=== PATIENT | male | born 1985 | race Caucasian/White ===

== ENCOUNTER 2016-10-11 16:18 | Emergency (ER) | payer BC ==
--- NOTE | 2016-10-11 17:04 | EDM.PDOC ---
ED HPI GENERAL MEDICAL PROBLEM - General Chief Complaint: Back Pain or Injury Stated Complaint: PT HAS LOWER BACK PAIN Time Seen by Provider: 10/11/16 16:50 Source of Information: Reports: Patient History Limitations: Reports: No Limitations - History of Present Illness INITIAL COMMENTS - FREE TEXT/NARRATIVE: HISTORY AND PHYSICAL: History of present illness: [Patient comes to the emergency room complaining of low back pain. He moved to [place] from [place] 5 days ago to start a job. he reports a history of chronic low back pain for many years with occasional flareups. If that he feels good 70% of the time, but the other 30% she experiences low back pain, spasms throughout his back, and pain in his hips. He had an MRI one and a half years ago which showed herniation of L3-L4 and spinal stenosis throughout. He has been applying hot and cold compresses, doing stretching exercises, and taking naproxen 225 mg tablets 2-3 tablets daily. He has not been seen by a medical provider within the past one year. Has not yet established care locally. Patient states that he does not want narcotics as they have not been effective in the past, and he doesn't want any trouble with a drug screen at his new employer. Denies numbness tingling and weakness. Pain is only in his low back. No fever or chills. No difficulty urinating. No constipation or diarrhea. No loss of rectal sensation. No other complaints or concerns. Review of systems: As per history of present illness and below otherwise all systems reviewed and negative. Past medical history: As per history of present illness and as reviewed below otherwise noncontributory. Surgical history: As per history of present illness and as reviewed below otherwise noncontributory. Social history: Smokes one pack of cigarettes per day, drinks a couple of beers per week Family history: As per history of present illness and as reviewed below otherwise noncontributory. Physical exam: HEENT: Atraumatic, normocephalic., pupils reactive, negative for conjunctival pallor or scleral icterus, oral mucous membranes are pink and moist. Chest: Clear to auscultation breath sounds equal bilaterally, chest nontender. Heart: S1S2, regular, negative for clicks, rubs, or JVD. Abdomen: Soft, obese. Pelvis: Stable nontender. Genitourinary: Deferred. Rectal: Deferred. Extremities: No spinal abnormalities are appreciated. No areas of tenderness or step-offs. No rashes or suspicious appearing lesions. Complains of discomfort with even gentle range of motion exercises throughout hips and low back. Neurovascular unremarkable. Neuro: Awake, alert, oriented. Patellar reflexes are diminished but equal bilaterally. No weakness to lower legs. Gait in all lower extremity movements are symmetrical. Motor and sensory unremarkable throughout. Exam nonfocal. Therapeutics: [Toradol 60mg IM, Norflex 60mg IM] Impression: [low back pain, chronic] Plan: [Discussed with patient that he needs to establish care with a local PCP for management of his chronic low back pain. Reviewed with him that narcotics are not prescribed in the ER for chronic low back pain. He receives Toradol and Norflex injections. He is instructed to take 2 naproxen twice a day with a PPI and with food. He is given a referral for local primary care. All of his questions are answered and concerns are addressed.] Definitive disposition and diagnosis as appropriate pending reevaluation and review of above. Lower Back Pain Score (Numeric/FACES): 7 - Related Data Allergies Allergy/AdvReac Type Severity Reaction Status Date / Time No Known Allergies Allergy Verified 10/11/16 16:29 Home Meds: Home Meds . [No Known Home Meds] 10/11/16 [History] Past Medical History - Past Health History Medical/Surgical History: Denies Medical/Surgical History Other Musculoskeletal History: herniated disc - Infectious Disease History Infectious Disease History: Reports: Chicken pox, Shingles Social & Family History - Family History Family Medical History: Noncontributory - Tobacco Use Smoking Status *Q: Current Every Day Smoker Years of Tobacco use: 5 Packs/Tins Daily: 1 - Caffeine Use Caffeine Use: Reports: Coffee, Energy drinks, Soda Caffeine Use Comment: 1-2each drinks/day - Recreational Drug Use Recreational Drug Use: No ED ROS GENERAL - Review of Systems Review Of Systems: ROS reveals no pertinent complaints other than HPI. ED EXAM,LOWER BACK PAIN/INJURY - Physical Exam Exam: See Below Course - Vital Signs Last Recorded V/S: Last Vital Signs Temp 97 F 10/11/16 16:26 Pulse 99 10/11/16 16:26 Resp 19 10/11/16 16:26 BP 142/81 H 05/11/17 16:26 Pulse Ox 98 10/11/16 16:26 - Orders/Labs/Meds Orders: Active Orders 24 hr Category Date Time Status Orphenadrine [Norflex] Med 10/11/16 17:30 Active 60 mg IM Q12H Medication Orders Orphenadrine Citrate (Norflex) 60 mg IM Q12H CHRISTO Last Admin: 10/11/16 17:26 Dose: 60 mg Meds: Medications Generic Name Dose Route Start Last Admin Trade Name Freq PRN Reason Stop Dose Admin Orphenadrine Citrate 60 mg 10/11/16 17:30 10/11/16 17:26 Norflex IM 60 mg Q12H CHRISTO Administration Discontinued Medications Generic Name Dose Route Start Last Admin Trade Name Freq PRN Reason Stop Dose Admin Ketorolac Tromethamine 60 mg 10/11/16 17:19 10/11/16 17:26 Toradol IM 10/11/16 17:20 60 mg ONETIME ONE Administration Departure - Departure Time of Disposition: 17:25 Disposition: Home, Self-Care 01 Condition: good Clinical Impression: Chronic low back pain Qualifiers: Back pain laterality: bilateral Sciatica presence: without sciatica Qualified Code(s): M54.5 - Low back pain - Discharge Information Instructions: Back Pain, Adult Referrals: PCP,None [Primary Care Provider] - Forms: ED Department Discharge Additional Instructions: The following information is given to patients seen in the emergency department who are being discharged to home. This information is to outline your options for follow-up care. We provide all patients seen in our emergency department with a follow-up referral. The need for follow-up, as well as the timing and circumstances, are variable depending upon the specifics of your emergency department visit. If you don't have a primary care physician on staff, we will provide you with a referral. We always advise you to contact your personal physician following an emergency department visit to inform them of the circumstance of the visit and for follow-up with them and/or the need for any referrals to a consulting specialist. The emergency department will also refer you to a specialist when appropriate. This referral assures that you have the opportunity for follow-up care with a specialist. All of these measure are taken in an effort to provide you with optimal care, which includes your follow-up. Under all circumstances we always encourage you to contact your private physician who remains a resource for coordinating your care. When calling for follow-up care, please make the office aware that this follow-up is from your recent emergency room visit. If for any reason you are refused follow-up, please contact the [facility] emergency department at and asked to speak to the emergency department charge nurse. [facility] Primary Care [facility] [place] [id number] Establish care with a local primary care provider at the clinic listed above. Followup there in 48-72 hours. Take 2 naproxen twice daily. You may also take Tylenol 2 tablets every 6 hours. Recommend taking [id number] omeprazole to protect the lining of your stomach from irritation. Return to ER as needed as discussed - My Orders Last 24 Hours: My Active Orders 10/11/16 17:30 Orphenadrine [Norflex] 60 mg IM Q12H - Assessment/Plan Last 24 Hours: My Active Orders 10/11/16 17:30 Orphenadrine [Norflex] 60 mg IM Q12H
[2016-10-11] MEDS ORDERED: Ketorolac 60 MG/2 ML SDV IM ONE (17:19)
[2016-10-11 18:00] VITALS: BP 141/70
== END 2016-10-11 17:45 | disposition home or self-care (01) ==
LOC: MW.ED 16:18
DX: M54.5 Low back pain (principal); G89.29 Other chronic pain; F17.210 Nicotine dependence, cigarettes, uncomplicated
CPT/HCPCS: 96372; 99283; J1885; J2360

== ENCOUNTER 2017-11-16 10:01 | Emergency (ER) | payer BC ==
--- NOTE | 2017-11-16 10:12 | EDM.PDOC ---
ED HPI GENERAL MEDICAL PROBLEM - General Stated Complaint: back pain Time Seen by Provider: 11/16/17 10:12 Source of Information: Reports: Patient History Limitations: Reports: No Limitations - History of Present Illness INITIAL COMMENTS - FREE TEXT/NARRATIVE: HISTORY AND PHYSICAL: History of present illness: 32-year-old male sitting emergency department with chief complaint of lower back pain 4 days. Patient states that roughly 4 days ago he twisted wrong at work and began to have significant lower back pain. Initially he was able to tolerate the pain using [id number] NSAIDs but his symptoms have not improved so comes to emergency department for further evaluation. Patient does state that he has a history of herniated disc. He has a L3/L4 disc herniation which was diagnosed last year on MRI. States that 80% of the time it does not affect him however when he does twist wrong and "throw his back out" he suffers for approximately 1 week. Patient was seen approximately one year ago for similar symptoms. He does not take regular medications or see a regular primary care provider here in [place]. He works for [employer] and initially was continuing his work but secondary to increased pain stopped today. He denies any bowel or bladder incontinence. States that the pain is in his lumbar area and radiates bilaterally to lower extremities. He denies any significant focal neurologic deficits but states that it is difficult for him to bend over. States that it is difficult for him pass stool secondary to pain. He has been unable to sleep. States that previous episodes have required muscle relaxer and rest. Denies any trauma, chest pain, palpitations, shortness breath, syncopal episodes, focal neurologic deficits. Review of systems: As per history of present illness and below otherwise all systems reviewed and negative. Past medical history: As per history of present illness and as reviewed below otherwise noncontributory. Surgical history: As per history of present illness and as reviewed below otherwise noncontributory. Social history: No reported history of drug or alcohol abuse. Family history: As per history of present illness and as reviewed below otherwise noncontributory. Physical exam: HEENT: Atraumatic, normocephalic, pupils reactive, negative for conjunctival pallor or scleral icterus, mucous membranes moist, throat clear, neck supple, nontender, trachea midline. Lungs: Clear to auscultation, breath sounds equal bilaterally, chest nontender. Heart: S1S2, regular, negative for clicks, rubs, or JVD. Abdomen: Soft, nondistended, nontender. Negative for masses or hepatosplenomegaly. Negative for costovertebral tenderness. Pelvis: Stable nontender. Genitourinary: Deferred. Rectal: Deferred. Extremities: Atraumatic, negative for cords or calf pain. Neurovascular unremarkable. Neuro: Awake, alert, oriented. Cranial nerves II through XII unremarkable. Cerebellum unremarkable. Motor and sensory unremarkable throughout. Exam nonfocal. Back: Patient is tender to palpation from L3-S1. There are significant paraspinal muscle spasms. No significant focal neurologic deficit on exam., No step-offs. Diagnostics: [] Therapeutics: Tordal 60 mg IM 1, Kulpmont 5-325 mg by mouth every 6 hours #12, Flexeril 10 mg by mouth 3 times a day Impression: Lumbar disc herniation Paraspinal muscle spasm Plan: Patient was given Toradol 60 mg IM as well as a prescription for Flexeril and a small prescription for K[place]ont 5-325mg #12 to be taken as needed for pain and to help him sleep. He was instructed to follow-up with her primary care provider and return to emergency department if he had any new or worsening symptoms. Low Back Pain Score (Numeric/FACES): 10 - Related Data Allergies Allergy/AdvReac Type Severity Reaction Status Date / Time No Known Allergies Allergy Verified 11/16/17 10:17 Home Meds: Home Meds . [No Known Home Meds] 10/11/16 [History] Past Medical History - Past Health History Medical/Surgical History: Denies Medical/Surgical History Other Musculoskeletal History: herniated disc - Infectious Disease History Infectious Disease History: Reports: Chicken Pox, Shingles Social & Family History - Family History Family Medical History: Noncontributory - Caffeine Use Caffeine Use: Reports: Coffee, Energy Drinks, Soda Caffeine Use Comment: 1-2each drinks/day ED ROS GENERAL - Review of Systems Review Of Systems: ROS reveals no pertinent complaints other than HPI. ED EXAM, GENERAL - Physical Exam Exam: See Below Course - Vital Signs Last Recorded V/S: Last Vital Signs Temp 98.0 F 11/16/17 10:18 Pulse 98 11/16/17 10:18 Resp 18 11/16/17 10:18 BP 149/89 H 11/16/17 10:18 Pulse Ox 97 11/16/17 10:18 - Orders/Labs/Meds Orders: Active Orders 24 hr Category Date Time Status Ketorolac [Toradol] Med 11/16/17 10:26 Once 60 mg IM ONETIME ONE Medication Orders Ketorolac Tromethamine (Toradol) 60 mg IM ONETIME ONE Stop: 11/16/17 10:27 Meds: Medications Generic Name Dose Route Start Last Admin Trade Name Rebecca PRN Reason Stop Dose Admin Ketorolac Tromethamine 60 mg 11/16/17 10:26 Toradol IM 11/16/17 10:27 ONETIME ONE Departure - Departure Time of Disposition: 10:37 Disposition: Home, Self-Care 01 Condition: Good Clinical Impression: Herniation of lumbar intervertebral disc with radiculopathy, Lumbar paraspinal muscle spasm - Discharge Information Referrals: PCP,None [Primary Care Provider] - Additional Instructions: My general discharge The following information is given to patients seen in the emergency department who are being discharged to home. This information is to outline your options for follow-up care. We provide all patients seen in our emergency department with a follow-up referral. The need for follow-up, as well as the timing and circumstances, are variable depending upon the specifics of your emergency department visit. If you don't have a primary care physician on staff, we will provide you with a referral. We always advise you to contact your personal physician following an emergency department visit to inform them of the circumstance of the visit and for follow-up with them and/or the need for any referrals to a consulting specialist. The emergency department will also refer you to a specialist when appropriate. This referral assures that you have the opportunity for follow-up care with a specialist. All of these measure are taken in an effort to provide you with optimal care, which includes your follow-up. Under all circumstances we always encourage you to contact your private physician who remains a resource for coordinating your care. When calling for follow-up care, please make the office aware that this follow-up is from your recent emergency room visit. If for any reason you are refused follow-up, please contact the [facility] Emergency Department at and asked to speak to the emergency department charge nurse. [facility] Primary Care [address] [place], [place] [id number] [address] [id number] - My Orders Last 24 Hours: My Active Orders 11/16/17 10:26 Ketorolac [Toradol] 60 mg IM ONETIME ONE - Assessment/Plan Last 24 Hours: My Active Orders 11/16/17 10:26 Ketorolac [Toradol] 60 mg IM ONETIME ONE
[2017-11-16] MEDS ORDERED: Ketorolac 60 MG/2 ML SDV IM ONE (10:26)
[2017-11-16 10:35] VITALS: BP 149/89
== END 2017-11-16 11:36 | disposition home or self-care (01) ==
LOC: MW.ED 10:01
DX: M51.16 Intervertebral disc disorders with radiculopathy, lumbar region (principal)
CPT/HCPCS: 96372; 99283; J1885

== ENCOUNTER 2020-11-25 22:09 | Emergency (ER) | payer BC ==
[2020-11-25] MEDS ORDERED: Sodium Chloride 0.9% 10 ML Syringe FLUSH PRN (22:33)
[2020-11-25] MEDS ORDERED: Sodium Chloride 0.9% 2.5 ML Syringe FLUSH PRN (22:33)
[2020-11-25] MEDS ORDERED: Aspirin 81 MG Tab.Chew PO ONE (22:33)
[2020-11-25 22:57] LABS: BLOOD UREA NITROGEN,BUN 19 mg/dL (7.0-18.0); CARBON DIOXIDE,CO2 25.7 mmol/L (21.0-32.0); CHLORIDE,CL 104 mmol/L (98-107); GLUCOSE RANDOM 86 mg/dL (74-106); POTASSIUM,K 4.3 mmol/L (3.5-5.1); SODIUM,NA 140 mmol/L (136-148)
--- NOTE | 2020-11-25 23:01 | CR ---
INDICATION: Chest pain TECHNIQUE: Chest radiograph 1 view COMPARISON: None FINDINGS: Severe degradation of image quality noted due to body habitus. Mediastinum: The mediastinum is normal in appearance. The heart silhouette is normal in size and morphology. Lung: Both lungs are unremarkable in appearance. No sign of pleural effusion seen. No pneumothorax is identified. Bone and Soft tissue: Unremarkable for age. IMPRESSION: 1. No acute cardiopulmonary disease is seen. Dictated by: Juan Thorne MD @ 11/25/2020 23:00:28 (Electronically Signed)
--- NOTE | 2020-11-25 23:02 | EDM.PDOC ---
ED HPI GENERAL MEDICAL PROBLEM - General Chief Complaint: Chest Pain Stated Complaint: CHEST PAIN Time Seen by Provider: 11/25/20 22:23 - History of Present Illness INITIAL COMMENTS - FREE TEXT/NARRATIVE: History of present illness: The patient has chest pain. He gets it for 3 days. When he wakes up he does not have it and is goes through today gradually get steadily worse. It is gotten a little worse each day as the day gets on over the last 3 days. He sleeps well and wakes up without the pain. Exertion does not make the pain happen. Food does not make the pain happen. Occasionally has a panic attack and the sweats feel short of breath has some minimal nausea and has worsening of the pain. His fingers tingle at that time and so to his lips. He is under a lot of stress at work and at his social life. He says he is able to manage it not suicidal or harmful. The patient smokes but he is not diabetic. He has a strong family history of diabetes. 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 [] Review of systems: As per history of present illness and below otherwise all systems reviewed and negative. Past medical history: As per history of present illness and as reviewed below otherwise noncontri butory. Surgical history: As per history of present illness and as reviewed below otherwise noncontributory. Social history: No reported history of drug or alcohol abuse. Family history: As per history of present illness and as reviewed below otherwise noncontributory. Physical exam: Constitutional -BMI 38.4-well developed, well-nourished and in no acute distress HEENT - normocephalic, no evidence of trauma - external nose and mouth normal - no mass in neck and no JVD - mucosae moist EYES - full EOM, PERRL, no icterus - no evidence of inflammation, injection, or drainage Respiratory -tender chest wall in the lower sternal borders and reproduces the pain. No respiratory distress, equal bilateral expansion, lungs clear to auscultation and no abnormal lung sounds Cardiovascular - Regular Rhythm with S1 and S2 appreciated and no murmur, gallop or rub. GI - abdomen soft without distension or organomegaly - normal bowel sounds - no guard or rebound Musculoskeletal no gross deformity of long bones or joints - no tenderness, swelling or edema Neurologic - Alert and oriented times four - CN II-XII grossly intact - motor sensory and coordination symmetrically normal Psychiatric - appropriate mood and affect with normal thought content Hematologic - No petechiae or purpura - mucosa appropriate color and sclera not pale - normal nail bed color and refill Integument - no rash or evidence of trauma - normal turgor Diagnostics: [] Therapeutics: [] Impression: [] Plan: [] Definitive disposition and diagnosis as appropriate pending reevaluation and review of above. Left Upper Chest Pain Score (Numeric/FACES): 3 - Related Data Allergies Allergy/AdvReac Type Severity Reaction Status Date / Time No Known Allergies Allergy Verified 11/25/20 22:16 Home Meds: Home Meds . [No Known Home Meds] 10/11/16 [History] Past Medical History - Past Health History Medical/Surgical History: Denies Medical/Surgical History Musculoskeletal History: Reports: Back Pain, Chronic, Other (See Below) Other Musculoskeletal History: herniated disc - Infectious Disease History Infectious Disease History: Reports: Chicken Pox, Shingles Social & Family History - Family History Family Medical History: No Pertinent Family History - Caffeine Use Caffeine Use: Reports: Coffee, Energy Drinks, Soda Caffeine Use Comment: 1-2each drinks/day - Recreational Drug Use Recreational Drug Use: No ED ROS GENERAL - Review of Systems Review Of Systems: Comprehensive ROS is negative, except as noted in HPI. ED EXAM, GENERAL - Physical Exam Exam: See Below Free Text/Narrative:: My physical exam is in the HPI #1 Interpretation EKG Interpretation Comments: EKG done at 2219 hrs. has a sinus rhythm with a heart rate of 70 DC 168 QT duration 413 axis [address] and T no prior for comparison impression normal EKG Course - Vital Signs Text/Narrative:: There is reviewed he has elevation of his white count. He either has pleuritic chest pain or he has costochondritis. Because of the stress I think it is most likely costochondritis. Patient has a slight elevation of the white count and he had slight improvement with the Toradol. Plan discharge and treat his inflammatory pain. Most likely costochondritis but with a white count there may be a pleuritic component or bowel component. Last Recorded V/S: Last Vital Signs Temp 36.2 C 11/25/20 22:13 Pulse 70 11/25/20 23:20 Resp 15 11/25/20 23:20 BP 112/52 L 11/25/20 23:20 Pulse Ox 97 11/25/20 23:20 - Orders/Labs/Meds Orders: Active Orders 24 hr Category Date Time Status EKG Documentation Completion [RC] AM Care 11/25/20 22:33 Active Sodium Chloride 0.9% [Saline Flush] Med 11/25/20 22:33 Active 10 ml FLUSH ASDIRECTED PRN Sodium Chloride 0.9% [Saline Flush] Med 11/25/20 22:33 Active 2.5 ml FLUSH ASDIRECTED PRN Saline Lock Insert [OM.PC] Stat Oth 11/25/20 22:33 Ordered Medication Orders Sodium Chloride (Sodium Chloride 0.9% 10 Ml Syringe) 10 ml FLUSH ASDIRECTED PRN PRN Reason: Keep Vein Open Last Admin: 11/25/20 22:55 Dose: 10 ml Documented by: JOANN Sodium Chloride (Sodium Chloride 0.9% 2.5 Ml Syringe) 2.5 ml FLUSH ASDIRECTED PRN PRN Reason: Keep Vein Open Last Admin: 11/25/20 22:55 Dose: 2.5 ml Documented by: JOANN Labs: Laboratory Tests 11/25/20 11/25/20 Range/Units 22:18 22:18 WBC 11.68 H (4.0-11.0) K/uL RBC 5.11 (4.50-5.90) M/uL Hgb 15.7 (13.0-17.0) g/dL Hct 45.8 (38.0-50.0) % MCV 89.6 (80.0-98.0) fL MCH 30.7 (27.0-32.0) pg MCHC 34.3 (31.0-37.0) g/dL RDW Std Deviation 43.8 (28.0-62.0) fl RDW Coeff of Ese 14 (11.0-15.0) % Plt Count 196 (150-400) K/uL MPV 11.50 (7.40-12.00) fL Neut % (Auto) 72.6 (48.0-80.0) % Lymph % (Auto) 20.0 (16.0-40.0) % Anson % (Auto) 5.6 (0.0-15.0) % Eos % (Auto) 1.5 (0.0-7.0) % Baso % (Auto) 0.3 (0.0-1.5) % Neut # (Auto) 8.5 H (1.4-5.7) K/uL Lymph # (Auto) 2.3 (0.6-2.4) K/uL Anson # (Auto) 0.7 (0.0-0.8) K/uL Eos # (Auto) 0.2 (0.0-0.7) K/uL Baso # (Auto) 0.0 (0.0-0.1) K/uL Sodium 140 (136-148) mmol/L Potassium 4.3 (3.5-5.1) mmol/L Chloride 104 (98-107) mmol/L Carbon Dioxide 25.7 (21.0-32.0) mmol/L BUN 19 H (7.0-18.0) mg/dL Creatinine 0.9 (0.8-1.3) mg/dL Est Cr Clr Drug Dosing 108.13 mL/min Estimated GFR (MDRD) > 60.0 ml/min Glucose 86 (74-106) mg/dL Calcium 9.3 (8.5-10.1) mg/dL Total Bilirubin 0.2 (0.2-1.0) mg/dL AST 20 (15-37) IU/L ALT 42 (14-63) IU/L Alkaline Phosphatase 74 (46-116) U/L Troponin I < 0.050 (0.000-0.056) ng/mL Total Protein 7.5 (6.4-8.2) g/dL Albumin 4.2 (3.4-5.0) g/dL Globulin 3.3 (2.6-4.0) g/dL Albumin/Globulin Ratio 1.3 (0.9-1.6) Meds: Medications Generic Name Dose Route Start Last Admin Trade Name Freq PRN Reason Stop Dose Admin Sodium Chloride 10 ml 11/25/20 22:33 11/25/20 22:55 Sodium Chloride 0.9% 10 Ml Syringe FLUSH 10 ml ASDIRECTED PRN Administration Keep Vein Open Sodium Chloride 2.5 ml 11/25/20 22:33 11/25/20 22:55 Sodium Chloride 0.9% 2.5 Ml Syringe FLUSH 2.5 ml ASDIRECTED PRN Administration Keep Vein Open Discontinued Medications Generic Name Dose Route Start Last Admin Trade Name Rebecca PRN Reason Stop Dose Admin Aspirin 324 mg 11/25/20 22:33 11/25/20 22:55 Aspirin 81 Mg Tab.Chew PO 11/25/20 22:34 324 mg ONETIME ONE Administration Ketorolac Tromethamine 15 mg 11/25/20 23:09 11/25/20 23:19 Ketorolac 30 Mg/Ml Sdv IVPUSH 11/25/20 23:10 15 mg ONETIME ONE Administration Departure - Departure Time of Disposition: 23:51 Disposition: Home, Self-Care 01 Condition: Good Clinical Impression: Chest wall pain - Discharge Information Instructions: Chest Wall Pain, [id number] Referrals: PCP,None [Primary Care Provider] - Forms: ED Department Discharge Additional Instructions: Use [id number] anti-inflammatory medicine and heat to the chest wall. Get plenty rest. Try to reduce stress or work through it. [facility] - Primary Care [address] [place] [address] [place] [address] The following information is given to patients seen in the emergency department who are being discharged to home. This information is to outline your options for follow-up care. We provide all patients seen in our emergency department with a follow-up referral. The need for follow-up, as well as the timing and circumstances, are variable depending upon the specifics of your emergency department visit. If you don't have a primary care physician on staff, we will provide you with a referral. We always advise you to contact your personal physician following an emergency department visit to inform them of the circumstance of the visit and for follow-up with them and/or the need for any referrals to a consulting specialist. The emergency department will also refer you to a specialist when appropriate. This referral assures that you have the opportunity for follow-up care with a specialist. All of these measure are taken in an effort to provide you with optimal care, which includes your follow-up. Under all circumstances we always encourage you to contact your private physician who remains a resource for coordinating your care. When calling for follow-up care, please make the office aware that this follow-up is from your recent emergency room visit. If for any reason you are refused follow-up, please contact the [facility] Emergency Department at and asked to speak to the emergency department charge nurse. Sepsis Event Note (ED) - Evaluation Sepsis Screening Result: No Definite Risk - Focused Exam Vital Signs: Vital Signs Temp Pulse Resp BP Pulse Ox 11/25/20 23:20 70 15 112/52 L 97 11/25/20 22:13 36.2 C 72 14 136/71 96 - My Orders Last 24 Hours: My Active Orders 11/25/20 22:33 EKG Documentation Completion [RC] AM Sodium Chloride 0.9% [Saline Flush] 10 ml FLUSH ASDIRECTED PRN Sodium Chloride 0.9% [Saline Flush] 2.5 ml FLUSH ASDIRECTED PRN Saline Lock Insert [OM.PC] Stat - Assessment/Plan Last 24 Hours: My Active Orders 11/25/20 22:33 EKG Documentation Completion [RC] AM Sodium Chloride 0.9% [Saline Flush] 10 ml FLUSH ASDIRECTED PRN Sodium Chloride 0.9% [Saline Flush] 2.5 ml FLUSH ASDIRECTED PRN Saline Lock Insert [OM.PC] Stat
[2020-11-25] MEDS ORDERED: Ketorolac 30 MG/ML SDV IVPUSH ONE (23:09)
[2020-11-25 23:21] VITALS: BP 112/52; PULSE 70
== END 2020-11-26 | disposition home or self-care (01) ==
LOC: MW.ED 22:09
DX: R07.89 Other chest pain (principal)
CPT/HCPCS: 36415; 71045; 80053; 84484; 85025; 93005; 96374; 99285; A9270; J1885; 93010; 99284